=== PATIENT | female | born 1990 | race Caucasian/White ===

== ENCOUNTER 2022-01-21 10:27 | Day surgery (SDC) | payer OTHER ==
[~2022-01-21] VITALS: Ht 162.6 cm; Wt 74.8 kg
[2022-01-21] MEDS ORDERED: PROTONIX40 MG PO (10:34)
[2022-01-21] MEDS ORDERED: PEPCID AC20 MG (10:35)
== END 2022-01-21 18:00 | disposition home or self-care (01) ==
LOC: ER 10:27 → CIR.AMB 12:17
PROVIDERS: ATTEND Specialist
DX: O03.4 Incomplete spontaneous abortion without complication (principal); Z20.822 Contact with and (suspected) exposure to COVID-19

== ENCOUNTER 2023-03-21 11:01 | Inpatient (IN) | payer OTHER ==
[~2023-03-21] VITALS: Ht 165.1 cm; Wt 95.7 kg
[~2023-03-21 11:01] MED LIST: PEPCID AC20 MG; PROTONIX40 MG PO
[2023-04-03] MEDS ORDERED: INTEGRA PLUS C1 EACH (13:47)
== END 2023-04-05 13:10 | disposition home or self-care (01) | DRG 807 ==
LOC: LDR 04-02 18:48 → OB/GYN 04-02 18:48
PROVIDERS: ADMIT Specialist; ATTEND Specialist
PROC: 4A1HXCZ Monitoring of Products of Conception, Cardiac Rate, External Approach (ICD-10-PCS; 2023-04-02)
PROC: 10E0XZZ Delivery of Products of Conception, External Approach (ICD-10-PCS; principal; 2023-04-03)
PROC: 0KQM0ZZ Repair Perineum Muscle, Open Approach (ICD-10-PCS; 2023-04-03)
DX: O70.1 Second degree perineal laceration during delivery (principal); Z37.0 Single live birth; Z3A.39 39 weeks gestation of pregnancy; Z20.822 Contact with and (suspected) exposure to COVID-19